=== PATIENT | male | born 1935 | race Caucasian/White ===

== ENCOUNTER 2018-09-05 15:46 | Emergency (ER) | payer OTHER ==
[~2018-09-05] VITALS: Ht 172.7 cm; Wt 81.6 kg
[2018-09-05 16:04] VITALS: Ht 172.7 cm; Wt 81.6 kg
[2018-09-05 17:04] LABS: BASOPHIL % 0.7 % (0-2); PLATELET COUNT 180 x10^3mcL (130-400)
[2018-09-05 17:18] LABS: CARBON DIOXIDE 24.7 mmol/L (21-32); CHLORIDE SERUM 104 mmol/L (98-107); GLUCOSE SERUM 133 mg/dL (74-106); POTASSIUM SERUM 4.5 mmol/L (3.5-5.1); SODIUM SERUM 139 mmol/L (136-145)
[2018-09-05 17:35] LABS: ALBUMIN 3.4 g/dL (3.4-5.0); ALKALINE PHOSPHATASE 107 U/L (46-116); ALT/SGPT 28 U/L (16-63); BILIRUBIN TOTAL 0.4 mg/dL (0.20-1.00)
[2018-09-05 18:16] LABS: AST/SGOT 28 U/L (15-37)
[2018-09-05 18:53] LABS: MAGNESIUM 2.4 mg/dL (1.8-2.4); PHOSPHOROUS 2.9 mg/dL (2.5-4.9)
[2018-09-05 19:00] LABS: FREE T4 1.05 ng/dL (0.76-1.46); FREE THYROXINE INDEX 2.5 ug/dL (1.4-4.5); T4(THYROXINE) 7.7 ug/dL (4.7-13.3)
[2018-09-05 19:05] LABS: T3 TOTAL 0.89 ng/mL
[2018-09-05 19:37] LABS: microscopic required? NO
[2018-09-05 19:53] VITALS: BP 148/70
[2018-09-05 20:03] LABS: urine erythrocyte NEGATIVE (NEGATIVE)
== END 2018-09-05 19:54 | disposition left against medical advice (07) ==
LOC: ED 15:46 → DU 18:09
PROVIDERS: Emergency Medicine; Family Medicine
DX: R55 Syncope and collapse (principal); N28.9 Disorder of kidney and ureter, unspecified; I10 Essential (primary) hypertension; E11.9 Type 2 diabetes mellitus without complications
CPT/HCPCS: 36415; 82962; 83880; 84439; 85378; J7030; Q0092